=== PATIENT | female | born 1980 | race Two or more races ===

== ENCOUNTER 2021-04-07 17:41 | Emergency (ER) | payer BC ==
[~2021-04-07] VITALS: Ht 170.2 cm; Wt 74.8 kg
--- NOTE | 2021-04-07 18:05 | NUR ---
urine collected/sent
[2021-04-07 18:16] LABS: *URINE HCG, QUAL NEGATIVE (NEGATIVE)
[2021-04-07 18:20] LABS: *BILIRUBIN,URIN NEGATIVE (NEGATIVE); *BLOOD, URINE 2+ (NEGATIVE); *COLOR,URINE DARK YELLOW (YELLOW); *KETONES,URINE TRACE (NEGATIVE); LEUKOCYTE ESTERASE ,URINE 1+ (NEGATIVE); NITRITE, URINE POSITIVE (NEGATIVE); PH,URINE 5.5 (5.0-8.0); UGLUCOSE TRACE (NEGATIVE)
[2021-04-07 18:27] LABS: *CLARITY,URINE SLIGHTLY CLOUDY (CLEAR)
[2021-04-07 18:28] LABS: BACTERIA,URINE FEW /HPF (NONE SEEN); SQUAMOUS EPITHELIAL CELL,UR FEW /HPF (NONE SEEN); WBC,URINE 50-80 /HPF (0-3)
--- NOTE | 2021-04-07 19:05 | NUR ---
report endorsed to nurse Michael all questions answered.
[2021-04-07] MEDS ORDERED: SULF1TAB48 PO (19:10)
[2021-04-07] MEDS ORDERED: CEPH500T PO (19:10)
[2021-04-07] MEDS ORDERED: ONDA4TAB5 PO (19:10)
[2021-04-07] MEDS ORDERED: HYDR-4209 PO (19:10)
[2021-04-07] MEDS ORDERED: CEFTRIAXONE 1 G VIAL IM ONE (19:15)
[2021-04-07] MEDS ORDERED: NITROFURANTOIN/NITROFURAN MAC 100 MG CAPSULE PO ONE ×2 (19:15→19:31)
[2021-04-07] MEDS ORDERED: ACETAMINOPHEN ES 500 MG TABLET PO ONE (19:15)
[2021-04-07] MEDS ORDERED: ONDANSETRON ODT 4 MG TAB.RAPDIS SL ONE (19:15)
[2021-04-07] MEDS ORDERED: ACETAMINOPHEN ES 500 MG TABLET ONE (19:30)
[2021-04-07] MEDS ORDERED: CEFTRIAXONE 1 G VIAL ONE (19:31)
[2021-04-07] MEDS ORDERED: ONDANSETRON ODT 4 MG TAB.RAPDIS ONE (19:31)
[2021-04-07] MEDS ORDERED: LIDOCAINE HCL 1% 20 ML VIAL ONE (19:31)
[2021-04-07 20:12] VITALS: BP 108/66
--- NOTE | 2021-04-07 20:12 | NUR ---
Patient discharged to home in stable condition. Written and verbal after care instructions given. Patient verbalizes understanding of instructions. Stressed follow up or return to ER for worsening s/s.
== END 2021-04-07 20:12 | disposition home or self-care (01) ==
LOC: ER 17:41
DX: N12 Tubulo-interstitial nephritis, not specified as acute or chronic (principal); R31.29 Other microscopic hematuria
CPT/HCPCS: 81001; 84703; 87086; 96372; 99284; J0696; J3490; 87077; A4663; A9150; Q0162